=== PATIENT | male | born 1965 | race American Indian/Alaskan Native ===

== ENCOUNTER 2019-01-08 22:37 | Emergency (ER) | payer MEDICARE ==
--- NOTE | 2019-01-09 01:58 | XRay Report ---
PROCEDURE: XR NECK SOFT TISSUE TECHNIQUE: AP and lateral views of the soft tissue neck were obtained. HISTORY: dysphagia COMPARISONS: None FINDINGS: The epiglottis and subglottic airway appear normal. The nasopharynx and hypopharynx appear normal. Th e prevertebral soft tissues appear normal. There is multilevel disc degeneration in the cervical spin e with a plate spurring. There is no evidence of foreign body. IMPRESSION: No significant findings.. This document is electronically signed by Duncan Nogueira MD., January 09 2019 01:56:35 AM ET
[2019-01-09 03:58] VITALS: BP 121/79
== END 2019-01-09 03:57 | disposition home or self-care (01) ==
LOC: ED 22:37
DX: R06.00 Dyspnea, unspecified (principal); Z53.21 Procedure and treatment not carried out due to patient leaving prior to being seen by health care provider
CPT/HCPCS: 70360

== ENCOUNTER 2021-08-06 18:34 | Emergency (ER) | payer MEDICARE ==
--- NOTE | 2021-08-06 19:28 | Emergency Department Report ---
HPI - General Chief Complaint: Psych Time Seen by Provider: 08/06/21 19:18 - HPI HPI: 56-year-old -[place] male presents to the emergency department with a complaint of depression, anxiety, auditory hallucinations, and suicidal ideations the patient has a history of major depressive disorder, bipolar disorder, and generalized anxiety disorder. He has been off of his medications for the past 1.5 months including Seroquel 300 mg at night, Wellbutrin 300 mg in the morning, and Vistaril as needed for anxiety. He says that his brother, who lives here, recently and he has been having significant depression and suicidal ideations. Patient just arrived here from [place], where he was previously receiving some psychiatric treatment and says that he "cannot even go back to the house because I know what will happen." The patient says that he does have a history of a suicide attempt by drug overdose in the past and is concerned that if he returns to the family home that he will do so again. He has a past medical history of hypertension. He smokes cigars. He denies any illicit drug use. ED Past Medical Hx - Past Medical History Hx Psychiatric Treatment: Yes (PTSD, Depression) - Surgical History Additional Surgical History: Uvula Removed - Social History Smoking Status: Never Smoker Substance Use Type: None ED Review of Systems ROS: Stated complaint: PTSD,DEPRESSION,HEARING VOICES,SI Other details as noted in HPI Comment: All other systems reviewed and negative Constitutional: denies: chills, fever Eyes: denies: eye pain, vision change ENT: denies: ear pain, throat pain Cardiovascular: denies: chest pain, palpitations Gastrointestinal: denies: abdominal pain, vomiting Musculoskeletal: denies: back pain, arthralgia Neurological: denies: headache, weakness Psychiatric: anxiety, depression, auditory hallucinations, suicidal thoughts Physical Exam - Physical Exam Vital Signs: Vital Signs 08/06/21 18:43 Temperature 98.7 F Pulse Rate 83 Respiratory 18 Rate Blood Pressure 157/100 [Right] O2 Sat by Pulse 100 Oximetry Physical Exam: GENERAL: The patient is well-developed well-nourished. HENT: Normocephalic. Atraumatic. Patient has moist mucous membranes. EYES: Extraocular motions are intact. NECK: Supple. Trachea is midline. CHEST/LUNGS: Clear to auscultation. There is no respiratory distress noted. HEART/CARDIOVASCULAR: Regular. There is no tachycardia. There is no murmur. ABDOMEN: Abdomen is soft, nontender. Patient has normal bowel sounds. SKIN: Skin is warm and dry. NEURO: The patient is awake, alert, and oriented. The patient is cooperative. Normal speech. MUSCULOSKELETAL: There is no tenderness or deformity. There is no limitation range of motion. ED Course Vital Signs 08/06/21 18:43 Temperature 98.7 F Pulse Rate 83 Respiratory 18 Rate Blood Pressure 157/100 [Right] O2 Sat by Pulse 100 Oximetry ED Medical Decision Making - Lab Data Result diagrams: 08/06/21 19:38 08/06/21 19:38 Lab Results 08/06/21 08/06/21 08/06/21 Range/Units 19:38 19:38 19:38 WBC 9.7 (4.5-11.0) K/mm3 RBC 4.86 (3.65-5.03) M/mm3 Hgb 15.3 H (11.8-15.2) gm/dl Hct 46.3 H (35.5-45.6) % MCV 95 H (84-94) fl MCH 32 (28-32) pg MCHC 33 (32-34) % RDW 13.8 (13.2-15.2) % Plt Count 232 (140-440) K/mm3 Lymph % (Auto) 25.2 (13.4-35.0) % [place] % (Auto) 7.3 (0.0-7.3) % Eos % (Auto) 0.4 (0.0-4.3) % Baso % (Auto) 0.6 (0.0-1.8) % Lymph # (Auto) 2.4 (1.2-5.4) K/mm3 [place] # (Auto) 0.7 (0.0-0.8) K/mm3 Eos # (Auto) 0.0 (0.0-0.4) K/mm3 Baso # (Auto) 0.1 (0.0-0.1) K/mm3 Seg Neutrophils % 66.5 (40.0-70.0) % Seg Neutrophils # 6.4 (1.8-7.7) K/mm3 Sodium 141 (137-145) mmol/L Potassium 4.2 (3.6-5.0) mmol/L Chloride 102.1 (98-107) mmol/L Carbon Dioxide 24 (22-30) mmol/L Anion Gap 19 mmol/L BUN 15 (9-20) mg/dL Creatinine 1.2 (0.8-1.3) mg/dL Estimated GFR > 60 ml/min BUN/Creatinine Ratio 13 % Glucose 82 (75-100) mg/dL Calcium 9.7 (8.4-10.2) mg/dL Plasma/Serum Alcohol < 0.01 (0-0.07) % - Medical Decision Making This patient presents to the emergency department for a mental health evaluation. He has a history of depression and says that he is extremely depressed and feeling suicidal with his brothers recent passing and his noncompliance with medication. For this reason the patient was made a 1013 and placed on ED hold. He was seen by the psychiatric drop press hand and also appeared to have some command hallucinations. Patient's labs have thus far been unremarkable including CBC, metabolic panel and blood alcohol level. We are waiting for a urine sample for urinalysis and UDS. I suspect UDS will be positive for cocaine. The patient does not appear acutely intoxicated. Vital signs reassuring including being afebrile. If the patient ends up having a urinary tract infection then antibiotics will need to be added. Otherwise this patient is medically cleared for psychiatric placement. Critical Care Time: No Critical care attestation.: If time is entered above; I have spent that time in minutes in the direct care of this critically ill patient, excluding procedure time. ED Disposition Clinical Impression: Depression, Suicidal ideations Disposition: [address] [place] [address] Is pt being admited?: No Condition: Stable Time of Disposition: 23:03
[2021-08-06 19:53] LABS: Basophils # (Auto) 0.1 K/mm3 (0.0-0.1); Basophils % (Auto) 0.6 % (0.0-1.8); Eosinophils % (Auto) 0.4 % (0.0-4.3); Hematocrit 46.3 % (35.5-45.6); Hemoglobin 15.3 gm/dl (11.8-15.2); Lymphocytes # (Auto) 2.4 K/mm3 (1.2-5.4); Lymphocytes % (Auto) 25.2 % (13.4-35.0); Mean Corpuscular HGB Conc 33 % (32-34); Mean Corpuscular Volume 95 fl (84-94); Monocytes # (Auto) 0.7 K/mm3 (0.0-0.8); Monocytes % (Auto) 7.3 % (0.0-7.3); Platelet Count 232 K/mm3 (140-440); Red Blood Count 4.86 M/mm3 (3.65-5.03); Red Cell Distribution Width 13.8 % (13.2-15.2)
[2021-08-06 20:14] LABS: BUN/Creatinine Ratio 13; Blood Urea Nitrogen 15 mg/dL (9-20); Calcium 9.7 mg/dL (8.4-10.2); Hemolysis Index 15
[2021-08-06] MEDS ORDERED: QUEtiapine 100 MG TAB PO ONE (21:00)
[2021-08-06 23:04] LABS: Amphetamine Screen,Urine PRESUMPTIVE NEGATIVE; Benzodiazepines Screen,Urine PRESUMPTIVE NEGATIVE; Cannabinoid Screen,Urine PRESUMPTIVE NEGATIVE; Cocaine Screen,Urine PRESUMPTIVE POSITIVE; Methadone Screen,Urine PRESUMPTIVE NEGATIVE; Opiate Screen,Urine PRESUMPTIVE NEGATIVE
[2021-08-06 23:14] LABS: Bilirubin,Urine NEG (Negative); Blood,Urine MOD (Negative); Color,Urine Yellow (Yellow); Mucus,Urine 3+ /HPF; Renal Epithelial Cells,Urine 7 /LPF
[2021-08-07 08:47] VITALS: BP 113/51
--- NOTE | 2021-08-07 11:23 | Consultation ---
History of Present Illness - Reason for Consult Consult date: 08/07/21 Reason for consult: SI - History of Present Psychiatric Illness The patient was seen today. He says he is depressed and feels suicidal. The patient denies having a plan. The patient says he's been feeling like this for about a month. But states [place] was [place] of [place] and ran out of his meds. He says charli pope flew back here to take care of his mental health. The patient also says he's hearing voices telling him to harm himself. He says he went to [facility] but they did not have a bed. He says he has a history of Bipolar. The patient says "I need to go somewhere for help." PAST PSYCHIATRIC HISTORY: Diagnoses: Bipolar Suicide attempts or Self-harm behavior: Denies Prior psychiatric hospitalizations: Yes Substance Abuse history: Denies Previous psychiatric medications tried: Seroquel 300, Wellbutrin 300 Outpatient treatment: Yes PAST MEDICAL HISTORY: None reported or document Family Psychiatric History: None reported or documented SOCIAL HISTORY Marital Status: Single Living Arrangements: alone Employment Status: Disabled Access to guns/weapons: Denies Education: History of Abuse: Denies Legal History: Denies REVIEW OF SYSTEMS Constitutional: Negative for weight loss ENT: Negative for stridor Respiratory: Negative for cough or hemoptysis All other systems reviewed and are negative MENTAL STATUS EXAMINATION General Appearance and Behavior: Age appropriate, good hygiene, wearing appropriate clothes. calm, cooperative Cooperation: cooperative Psychomotor Behavior: Psychomotor normal Mood: depressed Affect and affective range: congruent with stated mood Thought Process: goal directed Thought Content: hallucinations, depression Speech: normal tone and pace Suicidal Ideation: yes Homicidal Ideation: Denies Hallucinations: Auditory Delusions: none elicited Impulse Control: impaired Insight and Judgment: Limited Memory: limited Attention: Attentive Orientation: alert and oriented Assessment and Plan (1) Bipolar Disorder Treatment 1013 Seroquel 300mg po daily Wellbutrin 300mg po daily Sitter: per primary Medical: per primary Disposition: recommend acute psychiatric inpatient treatment Will follow. Thanks Case staffed with Dr. Johnson Medications and Allergies Allergies Allergy/AdvReac Type Severity Reaction Status Date / Time haloperidol [From Haldol] AdvReac Unknown Verified 08/06/21 18:48 Mental Status Exam - Vital signs Last Vital Signs Temp 98.4 F 08/07/21 08:46 Pulse 80 08/07/21 08:46 Resp 16 08/07/21 08:46 BP 113/51 08/07/21 08:46 Pulse Ox 100 08/07/21 08:46 Results Result Diagrams: 08/06/21 19:38 08/06/21 19:38 Abnormal lab results 08/06/21 Range/Units 19:38 Hgb 15.3 H (11.8-15.2) gm/dl Hct 46.3 H (35.5-45.6) % MCV 95 H (84-94) fl All other labs normal.
[2021-08-07] MEDS ORDERED: buPROPion XL 150 MG TAB PO SCH (12:00)
[2021-08-07] MEDS ORDERED: QUEtiapine 100 MG TAB PO SCH (22:00)
== END 2021-08-07 14:08 ==
LOC: ED 18:34
DX: R45.851 Suicidal ideations (principal); F32.9 Major depressive disorder, single episode, unspecified; Z20.822 Contact with and (suspected) exposure to COVID-19
CPT/HCPCS: 36415; 80048; 80307; 81001; 85025; 99285; U0003; 80320; G0480